=== PATIENT | male | born 1990 | race Two or more races ===

== ENCOUNTER 2016-08-08 05:50 | Emergency (ER) | payer BC ==
[2016-08-08] MEDS ORDERED: ACETAMINOPHEN 500 MG TABLET ONE (06:48)
[2016-08-08] MEDS ORDERED: IBUPROFEN 600 MG TABLET ONE (06:48)
== END 2016-08-08 07:12 | disposition home or self-care (01) ==
LOC: ED 05:50
DX: K02.9 Dental caries, unspecified (principal); F17.220 Nicotine dependence, chewing tobacco, uncomplicated